=== PATIENT | male | born 1960 | race Caucasian/White ===

== ENCOUNTER 2020-11-05 22:14 | Emergency (ER) | payer SELFPAY ==
[~2020-11-05] VITALS: Ht 182.9 cm; Wt 91.7 kg
[2020-11-05] MEDS ORDERED: DIPHENHYDRAMINE 50 MG/ML, 1ML IVPush ONE (23:00)
[2020-11-05] MEDS ORDERED: SODIUM CHLORIDE FLUSH 10ML SYR IVF ONE (23:00)
[2020-11-05] MEDS ORDERED: PROCHLORPERAZINE 5 MG/ML, 2ML IVPush ONE (23:00)
[2020-11-05] MEDS ORDERED: KETOROLAC 30 MG/1 ML IVPush ONE (23:00)
[2020-11-05] MEDS ORDERED: DIPHENHYDRAMINE 50 MG/ML, 1ML ONE (23:03)
[2020-11-05] MEDS ORDERED: KETOROLAC 30 MG/1 ML ONE (23:03)
[2020-11-05] MEDS ORDERED: PROCHLORPERAZINE 5 MG/ML, 2ML ONE (23:03)
[2020-11-05 23:23] LABS: BASOPHILS % (AUTO) 1 % (0-1); EOSINOPHILS % (AUTO) 1 % (1-7); LYMPHOCYTES % (AUTO) 14 % (22-44); MEAN CORPUSCULAR HEMOGLOBIN 33.2 pg (27.5-34.5); MEAN CORPUSCULAR HGB CONC 34.9 g/dL (33.2-36.2); MEAN PLATELET VOLUME 8.4 fL (7.4-10.4); MONOCYTES % (AUTO) 6 % (2-9); NEUTROPHILS % (AUTO) 78 % (42-75); PLATELET COUNT 214 x10^3/uL (130-400); RED BLOOD COUNT 4.65 x10^6/uL (4.38-5.82); RED CELL DISTRIBUTION WIDTH 13.5 % (9.4-14.8)
[2020-11-05 23:24] LABS: MD NO
--- NOTE | 2020-11-05 23:36 | NUR ---
pt came into ed this evening due to headache and jaw pain. reports being generally healthy but the last few evenings getting "really bad headaches and then tonight was just unbearable". pt placed on spo2/bp/ecg monitoring in the room. gross neuro intact but pt appears extremely uncomfortable, holding head and moaning. pt denies head trauma, denies hx of htn. pt bed in [facility], rails engaged, call light on lap, [facility] at [facility] for eval and poc. pt medicated per sep for cardenas and bp. to ct at this time.
[2020-11-06 00:07] LABS: ALANINE AMINOTRANSFERASE 38 U/L (12-78); ANION GAP 7 mmol/L (5-15); CALCIUM 8.6 mg/dL (8.5-10.1); CHLORIDE 104 mmol/L (98-107); CREATININE 0.79 mg/dL (0.7-1.3)
[2020-11-06 00:11] VITALS: BP 155/87
[2020-11-06 00:11] LABS: ALKALINE PHOSPHATASE 66 U/L (45-117); BILIRUBIN,TOTAL 0.5 mg/dL (0.2-1.0); TOTAL PROTEIN 6.9 g/dL (6.4-8.2); TROPONIN I < 0.015 ng/mL (0.000-0.045)
== END 2020-11-06 01:40 | disposition home or self-care (01) ==
LOC: ED 11-06 01:35
DX: G43.C0 Periodic headache syndromes in child or adult, not intractable (principal); I10 Essential (primary) hypertension; R94.31 Abnormal electrocardiogram [ECG] [EKG]
CPT/HCPCS: 36415; 70450; 80053; 84484; 85025; 93005; 96374; 96375; 99285; J0780; J1200; J1885